=== PATIENT | male | born 1960 | race Caucasian/White ===

== ENCOUNTER 2024-07-03 05:35 | Inpatient (IN) | payer MEDICARE, MEDICAID ==
[~2024-07-03] VITALS: Ht 172.7 cm; Wt 72.7 kg
[2024-07-03] VITALS (38 sets, daily range): BP systolic 114–191; BP diastolic 58–101; PULSE 80–119; RESP 14–24; TEMP 98–99.1; O2SAT 58–100
[~2024-07-03 05:35] MED LIST: ALB0.5UD IH; ALLO100T PO; LEVA15HF4 IH; LISI20TA28 PO; LOP25T PO; LORA1TAB PO; NOR5T PO; proair
[2024-07-03] MEDS: ondansetron/PF 4mg/2ml inj IV ONE (06:11)
[2024-07-03] MEDS: HYDROcodone/acetaminophen 5mg/325mg tablet PO ONE (06:12)
[2024-07-03 06:35] LABS: BASOPHILS # (AUTO) 0.1 X10'3 (0-0.2); BASOPHILS % (AUTO) 0.4 % (0-1); EOSINOPHILS % (AUTO) 0 % (0-6); HEMATOCRIT 45.8 % (42.0-52.0); HEMOGLOBIN 15.6 g/dl (14.0-17.9); LYMPHOCYTES # (AUTO) 0.7 X10'3 (1.1-4.8); LYMPHOCYTES % (AUTO) 2.6 % (21-51); MEAN CORPUSCULAR HEMOGLOBIN 31.6 PG (27.0-31.0); MEAN PLATELET VOLUME 8.2 FL (7.4-10.4); MONOCYTES # (AUTO) 1.4 X10'3 (0-0.9); MONOCYTES % (AUTO) 5.4 % (2-12); NEUTROPHILS # (AUTO) 24.3 X10'3 (1.8-7.7); NEUTROPHILS % (AUTO) 91.6 % (42-75); PLATELET COUNT 511 X10'3 (140-440); RED BLOOD COUNT 4.92 X10'6 (4.70-6.10); RED CELL DISTRIBUTION WIDTH 13.2 % (11.5-14.5)
[2024-07-03 06:41] LABS: ALANINE AMINOTRANSFERASE 30 U/L (12-78); ALBUMIN 4.4 G/DL (3.4-5.0); ALKALINE PHOSPHATASE 65 IU/L (46-116); ANION GAP 13 (8-16); ASPARTATE AMINO TRANSFERASE 27 U/L (10-37); BLOOD UREA NITROGEN 25 MG/DL (7-18); BUN/CREATININE RATIO 12.3 (10.0-20.0); CALCIUM 11.3 MG/DL (8.5-10.1); CHLORIDE 89 MMOL/L (99-107); CREATININE 2.03 MG/DL (0.60-1.10); GLUCOSE 279 MG/DL (70-104); POTASSIUM 3.4 MMOL/L (3.5-5.1); SODIUM 130 MMOL/L (135-145); TOTAL PROTEIN 8.6 G/DL (6.4-8.2); eCRCL 35 ML/MIN; eGFR 34 ML/MIN
[2024-07-03 06:50] LABS: LIPASE 56 U/L (16-77); PRO BRAIN NATRIURETIC PEPTIDE 2723 PG/ML (0-125)
[2024-07-03] MEDS: normal saline 1000ml 1,000 ML IV ONE ×3 (07:16→09:10)
[2024-07-03] MEDS: HYDROmorphone 1 mg/ml syringe IV ONE (07:16)
[2024-07-03 07:17] LABS: WHITE BLOOD COUNT 26.6 X10'3 (4.5-11.0)
[2024-07-03] MEDS: morphine 4 MG/ML inj SYRINge IV ONE ×2 (07:52→09:06)
[2024-07-03 08:41] LABS: BILIRUBIN,URINE SMALL (Neg); COLOR,URINE YELLOW (Yellow); GLUCOSE, URINE NEGATIVE (Neg); KETONES,URINE TRACE mg/dl (Neg); LEUKOCYTE ESTERASE ,URINE NEGATIVE (Neg); NITRITES, URINE NEGATIVE (Neg); OCCULT BLOOD,URINE NEGATIVE (Neg); PH,URINE 8.5 (4.8-8.0); PROTEIN,URINE 100 mg/dl (Neg); UROBILINOGEN,URINE 0.2 E.U/dL (0.2-1.0)
[2024-07-03 08:44] LABS: CLARITY,URINE SLIGHTLY CLOUDY (Clear); UA COLLECTION TYPE CLN CATCH MIDSTREAM
[2024-07-03 08:47] LABS: TOTAL CELLS COUNTED 100
[2024-07-03 08:48] LABS: PLATELET ESTIMATE INCREASED
[2024-07-03 08:50] LABS: SQUAMOUS EPITHELIAL CELL,UR FEW /LPF (FEW)
[2024-07-03 08:51] LABS: BACTERIA,URINE FEW /HPF (Neg); SPERM FEW /HPF (NEGATIVE)
[2024-07-03] MEDS: piperacillin/tazo 3.375gm/50ml 50 ML IV ONE (09:42)
[2024-07-03] MEDS ORDERED: hydrALAZINE 20mg/ml inj. IV PRN (10:00)
[2024-07-03] MEDS ORDERED: morphine 2 MG/ML inj. syringe IV PRN ×3 (10:00→10:45)
[2024-07-03] MEDS: ringers solution, lacted 1,000 ML IV SCH (10:00)
[2024-07-03] MEDS ORDERED: fentaNYL/PF 50MCG/1 ML 2ML syringe IV PRN (10:00)
[2024-07-03] MEDS ORDERED: NORepinephrine 8mg/ 250ml NS 250 ML IV ONE (10:13)
[2024-07-03] MEDS ORDERED: LIDOcaine 1% 30ml preserv. free vial ONE (10:37)
[2024-07-03] MEDS ORDERED: LIDOcaine 1% (10mg/ml) 2ml vial ONE (10:38)
[2024-07-03] MEDS ORDERED: BUPIVACAINE liposomal/PF 13.3 MG/ML 10mL vial IM ONE ×2 (10:38→10:50)
[2024-07-03] MEDS ORDERED: BUPIVAcaine 2.5mg/ml inj 50ml vial (contains preservative) ONE ×2 (10:38→10:50)
[2024-07-03] MEDS ORDERED: HYDROcodone/acetaminophen 5mg/325mg tablet PO PRN (10:45)
[2024-07-03] MEDS ORDERED: magnesium sulf-water 2g/50mL 50 ML IV PRN (10:45)
[2024-07-03] MEDS ORDERED: acetaminophen 325mg tablet PO PRN (10:45)
[2024-07-03] MEDS ORDERED: normal saline 1000ml 1,000 ML IV SCH (10:45)
[2024-07-03] MEDS ORDERED: HYDROcodone/acetaminophen 10/325mg tab PO PRN (10:45)
[2024-07-03] MEDS ORDERED: potassium Cl 20 mEq SR tablet PO PRN ×2 (10:45)
[2024-07-03] MEDS ORDERED: magnesium sulf-water 4G/100mL 100 ML IV PRN (10:45)
[2024-07-03] MEDS ORDERED: ondansetron/PF 4mg/2ml inj IV PRN (10:45)
[2024-07-03] MEDS ORDERED: magnesium Cl slow-release 64mg tablet PO PRN (10:45)
[2024-07-03] MEDS: albuterol 2.5 MG/3 ML nebule NEB ONE (10:46)
[2024-07-03] MEDS ORDERED: sevoflurane 250ml liquid IH ONE (11:00)
[2024-07-03] MEDS ORDERED: fentaNYL /PF 50mcg/ml 5ml ampule ONE ×2 (11:52→12:15)
[2024-07-03] MEDS ORDERED: propofol inj 20 ML IV ONE (12:12)
[2024-07-03] MEDS ORDERED: LIDOcaine 2% (20mg/ml) 5ml vial ONE (12:12)
[2024-07-03] MEDS ORDERED: rocuronium 10mg/ml inj IV ONE ×2 (12:12)
[2024-07-03] MEDS ORDERED: sugammadex 200mg/2ml injection IV ONE (12:16)
[2024-07-03] MEDS: labetalol 20mg/4ml (5mg/ml) syringe IV PRN (12:48)
[2024-07-03] MEDS ORDERED: naloxone 0.4 mg/ml inj IV PRN (12:55)
[2024-07-03] MEDS: morphine 4 MG/ML inj SYRINge IV PRN (13:25)
[2024-07-03] MEDS: fentaNYL/PF 50MCG/1 ML 2ML syringe IV PRN (13:31)
[2024-07-03] MEDS: HYDROmorph/NS 0.2 mg/ml PCA 100 ML IV SCH (13:40)
[2024-07-03] MEDS: ondansetron/PF 4mg/2ml inj IV PRN (14:55)
[2024-07-03] MEDS: normal saline 1000ml 1,000 ML IV SCH (19:37)
[2024-07-03] MEDS: proCHLORperazine 10 MG/2 ml inj IV PRN (19:47)
[2024-07-03] MEDS: heparin, porcine 5000 units/ml vial SQ SCH (19:51)
[2024-07-03] MEDS: ceFOXitin 1 GM/D5W 50mL IVPB 50 ML IV SCH (19:54)
[2024-07-03] MEDS: metroNIDAZOLE-Flagyl 500mg/NS 100 ML IV SCH (21:23)
[2024-07-03] MEDS ORDERED: ciprofloxacin 250mg tablet PO SCH (22:00)
[2024-07-03] MEDS ORDERED: haloperidol lactate 5mg/ml inj IM PRN (22:20)
[2024-07-04] MEDS: folic acid 1mg/0.2ml inj IV SCH (00:14)
[2024-07-04] MEDS: thiamine 100mg/ml 2ml inj. IV SCH (00:16)
[2024-07-04 02:00] VITALS: BP 126/73; PULSE 93; RESP 18; TEMP 98.1; O2SAT 95
[2024-07-04] MEDS: potassium Cl 40MEQ/1/2NS 520ml 520 ML IV PRN (02:14)
[2024-07-04] MEDS: ondansetron/PF 4mg/2ml inj IV PRN (02:21)
[2024-07-04 06:00] VITALS: BP 129/77; PULSE 96; RESP 15; TEMP 98; O2SAT 99
[2024-07-04 06:18] LABS: BASOPHILS % (AUTO) 0.1 % (0-1); EOSINOPHILS % (AUTO) 0 % (0-6); HEMATOCRIT 34.4 % (42.0-52.0); HEMOGLOBIN 11.9 g/dl (14.0-17.9); LYMPHOCYTES # (AUTO) 1.1 X10'3 (1.1-4.8); LYMPHOCYTES % (AUTO) 5.7 % (21-51); MEAN CORPUSCULAR HEMOGLOBIN 32.2 PG (27.0-31.0); MEAN CORPUSCULAR HGB CONC 34.7 g/dL (33.0-36.5); MEAN PLATELET VOLUME 7.6 FL (7.4-10.4); MONOCYTES # (AUTO) 1.6 X10'3 (0-0.9); MONOCYTES % (AUTO) 8.2 % (2-12); NEUTROPHILS # (AUTO) 16.8 X10'3 (1.8-7.7); PLATELET COUNT 313 X10'3 (140-440); RED CELL DISTRIBUTION WIDTH 13.3 % (11.5-14.5); WHITE BLOOD COUNT 19.5 X10'3 (4.5-11.0)
[2024-07-04 06:35] LABS: ALANINE AMINOTRANSFERASE 27 U/L (12-78); ALBUMIN 2.8 G/DL (3.4-5.0); ALBUMIN/GLOBULIN RATIO 0.8 (1.1-1.5); ALKALINE PHOSPHATASE 42 IU/L (46-116); ANION GAP 6 (8-16); ASPARTATE AMINO TRANSFERASE 31 U/L (10-37); BILIRUBIN,TOTAL 0.6 MG/DL (0.1-1.0); BLOOD UREA NITROGEN 18 MG/DL (7-18); BUN/CREATININE RATIO 17.8 (10.0-20.0); CALCIUM 8.7 MG/DL (8.5-10.1); CHLORIDE 100 MMOL/L (99-107); CREATININE 1.01 MG/DL (0.60-1.10); GLUCOSE 125 MG/DL (70-104); POTASSIUM 3.8 MMOL/L (3.5-5.1); SODIUM 139 MMOL/L (135-145); TOTAL CARBON DIOXIDE 33.3 MMOL/L (24-32); TOTAL PROTEIN 6.1 G/DL (6.4-8.2); eCRCL 74 ML/MIN; eGFR 75 ML/MIN
[2024-07-04] MEDS: LORazepam 2 mg/ml vial IV PRN (08:18)
[2024-07-04 11:00] VITALS: BP 130/77; PULSE 108; RESP 15; TEMP 99.4; O2SAT 91
[2024-07-04] MEDS: CADD PCA waste documentation MC SCH (17:35)
[2024-07-04 18:00] VITALS: BP 165/85; PULSE 96; RESP 15; TEMP 97.7; O2SAT 96
[2024-07-04] MEDS: HYDROmorphone 1 mg/ml syringe IV PRN (18:01)
[2024-07-04 20:00] VITALS: RESP 15; O2SAT 96
[2024-07-04 22:00] VITALS: BP 167/92; PULSE 114; RESP 26; TEMP 97.7; O2SAT 96
[2024-07-04] MEDS: ciprofloxacin/D5W 200mg/100mL 100 ML IV SCH (22:32)
[2024-07-04] MEDS: fluticasone nasal spray 16GM bottle NS SCH (22:51)
[2024-07-05] VITALS (8 sets, daily range): BP systolic 139–165; BP diastolic 70–89; PULSE 89–128; RESP 14–27; TEMP 97.9–99.7; O2SAT 92–96
[2024-07-05 06:32] LABS: BASOPHILS # (AUTO) 0.1 X10'3 (0-0.2); BASOPHILS % (AUTO) 0.4 % (0-1); EOSINOPHILS # (AUTO) 0.1 X10'3 (0-0.9); EOSINOPHILS % (AUTO) 0.5 % (0-6); HEMATOCRIT 31.9 % (42.0-52.0); HEMOGLOBIN 10.9 g/dl (14.0-17.9); LYMPHOCYTES # (AUTO) 1.3 X10'3 (1.1-4.8); LYMPHOCYTES % (AUTO) 9.7 % (21-51); MEAN CORPUSCULAR HEMOGLOBIN 31.8 PG (27.0-31.0); MEAN CORPUSCULAR HGB CONC 34.1 g/dL (33.0-36.5); MEAN CORPUSCULAR VOLUME 93.1 FL (78-98); MEAN PLATELET VOLUME 8.1 FL (7.4-10.4); MONOCYTES # (AUTO) 1.4 X10'3 (0-0.9); MONOCYTES % (AUTO) 10.1 % (2-12); NEUTROPHILS # (AUTO) 11.1 X10'3 (1.8-7.7); NEUTROPHILS % (AUTO) 79.3 % (42-75); PLATELET COUNT 308 X10'3 (140-440); RED BLOOD COUNT 3.43 X10'6 (4.70-6.10); RED CELL DISTRIBUTION WIDTH 12.8 % (11.5-14.5); WHITE BLOOD COUNT 13.9 X10'3 (4.5-11.0)
[2024-07-05 06:55] LABS: ALANINE AMINOTRANSFERASE 39 U/L (12-78); ALBUMIN 2.8 G/DL (3.4-5.0); ALBUMIN/GLOBULIN RATIO 0.8 (1.1-1.5); ALKALINE PHOSPHATASE 41 IU/L (46-116); ANION GAP 7 (8-16); ASPARTATE AMINO TRANSFERASE 27 U/L (10-37); BILIRUBIN,TOTAL 0.7 MG/DL (0.1-1.0); BLOOD UREA NITROGEN 15 MG/DL (7-18); BUN/CREATININE RATIO 18.3 (10.0-20.0); CALCIUM 9.1 MG/DL (8.5-10.1); CHLORIDE 100 MMOL/L (99-107); CREATININE 0.82 MG/DL (0.60-1.10); GLUCOSE 93 MG/DL (70-104); SODIUM 141 MMOL/L (135-145); TOTAL CARBON DIOXIDE 34.3 MMOL/L (24-32); TOTAL PROTEIN 6.5 G/DL (6.4-8.2); eCRCL 92 ML/MIN; eGFR > 90 ML/MIN
[2024-07-05 07:26] LABS: POTASSIUM 2.4 MMOL/L (3.5-5.1)
[2024-07-05] MEDS: metoprolol tartrate 25mg tablet PO SCH (08:33)
[2024-07-05] MEDS: amLODIPine 5mg tablet PO SCH (08:34)
[2024-07-05] MEDS: lisinopril 20mg tablet PO SCH (08:34)
[2024-07-05] MEDS: proCHLORperazine 10 MG/2 ml inj IV PRN (15:52)
[2024-07-05] MEDS: zolpidem 5mg tablet PO PRN (20:41)
[2024-07-06] VITALS (11 sets, daily range): BP systolic 135–166; BP diastolic 72–102; PULSE 82–121; RESP 16–30; TEMP 97.7–98.9; O2SAT 91–98
[2024-07-06 01:12] LABS: URINE AMPHETAMINE SCREEN NEGATIVE (Neg); URINE BARBITUATE SCREEN NEGATIVE (Neg); URINE BENZODIAZEPINES SCREEN NEGATIVE (Neg); URINE CANNABINOID SCREEN POSITIVE (Neg); URINE COCAINE SCREEN NEGATIVE (Neg); URINE METHADONE SCREEN NEGATIVE (Neg); URINE OPIATE SCREEN POSITIVE (Neg); URINE PHENCYCLIDINE SCREEN NEGATIVE (Neg)
[2024-07-06 05:31] LABS: BASOPHILS % (AUTO) 0.1 % (0-1); EOSINOPHILS # (AUTO) 0.1 X10'3 (0-0.9); EOSINOPHILS % (AUTO) 1.2 % (0-6); HEMATOCRIT 30.5 % (42.0-52.0); HEMOGLOBIN 10.4 g/dl (14.0-17.9); LYMPHOCYTES # (AUTO) 0.8 X10'3 (1.1-4.8); LYMPHOCYTES % (AUTO) 7.9 % (21-51); MEAN CORPUSCULAR HEMOGLOBIN 31.9 PG (27.0-31.0); MEAN CORPUSCULAR HGB CONC 34.3 g/dL (33.0-36.5); MEAN CORPUSCULAR VOLUME 93.2 FL (78-98); MEAN PLATELET VOLUME 7.3 FL (7.4-10.4); MONOCYTES % (AUTO) 9.9 % (2-12); NEUTROPHILS # (AUTO) 8.5 X10'3 (1.8-7.7); NEUTROPHILS % (AUTO) 80.9 % (42-75); PLATELET COUNT 318 X10'3 (140-440); RED BLOOD COUNT 3.27 X10'6 (4.70-6.10); RED CELL DISTRIBUTION WIDTH 12.5 % (11.5-14.5); WHITE BLOOD COUNT 10.6 X10'3 (4.5-11.0)
[2024-07-06 05:47] LABS: ALANINE AMINOTRANSFERASE 41 U/L (12-78); ALBUMIN 2.8 G/DL (3.4-5.0); ALBUMIN/GLOBULIN RATIO 0.8 (1.1-1.5); ANION GAP 5 (8-16); ASPARTATE AMINO TRANSFERASE 26 U/L (10-37); BILIRUBIN,TOTAL 0.6 MG/DL (0.1-1.0); BLOOD UREA NITROGEN 13 MG/DL (7-18); BUN/CREATININE RATIO 16.5 (10.0-20.0); CALCIUM 8.7 MG/DL (8.5-10.1); CHLORIDE 104 MMOL/L (99-107); CREATININE 0.79 MG/DL (0.60-1.10); GLUCOSE 91 MG/DL (70-104); MAGNESIUM 1.7 MG/DL (1.5-2.4); POTASSIUM 3.1 MMOL/L (3.5-5.1); SODIUM 142 MMOL/L (135-145); TOTAL CARBON DIOXIDE 32.8 MMOL/L (24-32); TOTAL PROTEIN 6.4 G/DL (6.4-8.2); eCRCL 95 ML/MIN; eGFR > 90 ML/MIN
[2024-07-06 05:48] LABS: ALKALINE PHOSPHATASE 43 IU/L (46-116)
[2024-07-06] MEDS ORDERED: potassium Cl 20 mEq SR tablet PO PRN (14:55)
[2024-07-06] MEDS ORDERED: magnesium sulf-water 4G/100mL 100 ML IV PRN (15:00)
[2024-07-06] MEDS ORDERED: magnesium sulf-water 2g/50mL 50 ML IV PRN (15:00)
[2024-07-06] MEDS: pantoprazole 40 MG vial IV SCH (17:04)
[2024-07-06] MEDS: albuterol 2.5 MG/3 ML nebule NEB PRN (21:44)
[2024-07-07] VITALS (10 sets, daily range): BP systolic 111–137; BP diastolic 60–90; PULSE 81–109; RESP 16–22; TEMP 98.2–99.9; O2SAT 90–98
[2024-07-07] MEDS: HYDROmorphone inj. 0.5 MG/0.5 ML DISP.SYRIN IV PRN (02:06)
[2024-07-07 05:25] LABS: BASOPHILS % (AUTO) 0.3 % (0-1); EOSINOPHILS # (AUTO) 0.2 X10'3 (0-0.9); EOSINOPHILS % (AUTO) 1.8 % (0-6); HEMATOCRIT 29.3 % (42.0-52.0); HEMOGLOBIN 10.2 g/dl (14.0-17.9); LYMPHOCYTES # (AUTO) 0.8 X10'3 (1.1-4.8); LYMPHOCYTES % (AUTO) 9.1 % (21-51); MEAN CORPUSCULAR HEMOGLOBIN 32.2 PG (27.0-31.0); MEAN CORPUSCULAR HGB CONC 34.7 g/dL (33.0-36.5); MEAN CORPUSCULAR VOLUME 92.9 FL (78-98); MEAN PLATELET VOLUME 7.7 FL (7.4-10.4); MONOCYTES # (AUTO) 1.2 X10'3 (0-0.9); NEUTROPHILS # (AUTO) 6.4 X10'3 (1.8-7.7); NEUTROPHILS % (AUTO) 74.8 % (42-75); PLATELET COUNT 322 X10'3 (140-440); RED BLOOD COUNT 3.16 X10'6 (4.70-6.10); RED CELL DISTRIBUTION WIDTH 12.6 % (11.5-14.5); WHITE BLOOD COUNT 8.6 X10'3 (4.5-11.0)
[2024-07-07 05:41] LABS: ALANINE AMINOTRANSFERASE 33 U/L (12-78); ALBUMIN 2.2 G/DL (3.4-5.0); ALBUMIN/GLOBULIN RATIO 0.7 (1.1-1.5); ALKALINE PHOSPHATASE 36 IU/L (46-116); ANION GAP 5 (8-16); ASPARTATE AMINO TRANSFERASE 21 U/L (10-37); BILIRUBIN,TOTAL 0.3 MG/DL (0.1-1.0); BLOOD UREA NITROGEN 12 MG/DL (7-18); BUN/CREATININE RATIO 14.8 (10.0-20.0); CALCIUM 7.4 MG/DL (8.5-10.1); CHLORIDE 103 MMOL/L (99-107); CREATININE 0.81 MG/DL (0.60-1.10); GLUCOSE 126 MG/DL (70-104); MAGNESIUM 2.3 MG/DL (1.5-2.4); SODIUM 135 MMOL/L (135-145); TOTAL PROTEIN 5.4 G/DL (6.4-8.2); eCRCL 93 ML/MIN; eGFR > 90 ML/MIN
[2024-07-07 05:49] LABS: POTASSIUM 2.7 MMOL/L (3.5-5.1)
[2024-07-07] MEDS: potassium Cl 40MEQ/1/2NS 520ml 520 ML IV PRN (06:13)
[2024-07-07] MEDS ORDERED: oxyCODONE/APAP 5-325mg tablet PO PRN (16:20)
[2024-07-07] MEDS: ringers solution, lacted 1,000 ML IV SCH (16:38)
[2024-07-07] MEDS: LORazepam 0.5 MG tablet PO PRN (18:00)
[2024-07-07] MEDS: oxyCODONE/APAP 10/325mg tablet PO PRN (20:01)
[2024-07-08] VITALS (11 sets, daily range): BP systolic 103–149; BP diastolic 55–73; PULSE 80–116; RESP 13–25; TEMP 97.5–98.8; O2SAT 92–96
[2024-07-08 03:21] LABS: BASOPHILS % (AUTO) 0.7 % (0-1); EOSINOPHILS # (AUTO) 0.1 X10'3 (0-0.9); EOSINOPHILS % (AUTO) 1.4 % (0-6); HEMATOCRIT 27.6 % (42.0-52.0); HEMOGLOBIN 9.7 g/dl (14.0-17.9); LYMPHOCYTES # (AUTO) 1.1 X10'3 (1.1-4.8); LYMPHOCYTES % (AUTO) 14.5 % (21-51); MEAN CORPUSCULAR HEMOGLOBIN 32.4 PG (27.0-31.0); MEAN CORPUSCULAR VOLUME 92.4 FL (78-98); MEAN PLATELET VOLUME 7.7 FL (7.4-10.4); MONOCYTES # (AUTO) 1.1 X10'3 (0-0.9); MONOCYTES % (AUTO) 14.8 % (2-12); NEUTROPHILS # (AUTO) 5.1 X10'3 (1.8-7.7); NEUTROPHILS % (AUTO) 68.6 % (42-75); PLATELET COUNT 289 X10'3 (140-440); RED BLOOD COUNT 2.99 X10'6 (4.70-6.10); RED CELL DISTRIBUTION WIDTH 12.2 % (11.5-14.5); WHITE BLOOD COUNT 7.5 X10'3 (4.5-11.0)
[2024-07-08 03:46] LABS: ALANINE AMINOTRANSFERASE 39 U/L (12-78); ALBUMIN 2.4 G/DL (3.4-5.0); ALBUMIN/GLOBULIN RATIO 0.8 (1.1-1.5); ALKALINE PHOSPHATASE 32 IU/L (46-116); ANION GAP 5 (8-16); ASPARTATE AMINO TRANSFERASE 31 U/L (10-37); BILIRUBIN,TOTAL 0.3 MG/DL (0.1-1.0); BLOOD UREA NITROGEN 7 MG/DL (7-18); BUN/CREATININE RATIO 9.7 (10.0-20.0); CALCIUM 7.8 MG/DL (8.5-10.1); CHLORIDE 103 MMOL/L (99-107); CREATININE 0.72 MG/DL (0.60-1.10); GLUCOSE 91 MG/DL (70-104); MAGNESIUM 1.4 MG/DL (1.5-2.4); POTASSIUM 3.2 MMOL/L (3.5-5.1); SODIUM 136 MMOL/L (135-145); TOTAL CARBON DIOXIDE 27.8 MMOL/L (24-32); TOTAL PROTEIN 5.4 G/DL (6.4-8.2); eCRCL 104 ML/MIN; eGFR > 90 ML/MIN
[2024-07-08] MEDS: potassium Cl 20 mEq SR tablet PO PRN (07:43)
[2024-07-08] MEDS: magnesium Cl slow-release 64mg tablet PO PRN (07:43)
[2024-07-08] MEDS: acetaminophen 325mg tablet PO PRN (07:44)
[2024-07-09] VITALS (10 sets, daily range): BP systolic 104–138; BP diastolic 62–71; PULSE 74–91; RESP 14–18; TEMP 97.4–98.4; O2SAT 92–96
[2024-07-09] MEDS: lactose-reduced food (Ensure Enlive) - 237ml bottle PO SCH (13:24)
[2024-07-09] MEDS: mag hydrox/Alum hydrox/simeth 30ml oral suspension PO PRN (14:36)
[2024-07-09 19:30] LABS: BASOPHILS # (AUTO) 0.1 X10'3 (0-0.2); BASOPHILS % (AUTO) 0.9 % (0-1); EOSINOPHILS # (AUTO) 0.1 X10'3 (0-0.9); EOSINOPHILS % (AUTO) 1.8 % (0-6); HEMATOCRIT 28.8 % (42.0-52.0); HEMOGLOBIN 10.1 g/dl (14.0-17.9); LYMPHOCYTES # (AUTO) 1.2 X10'3 (1.1-4.8); LYMPHOCYTES % (AUTO) 21.8 % (21-51); MEAN CORPUSCULAR HEMOGLOBIN 32.6 PG (27.0-31.0); MEAN CORPUSCULAR HGB CONC 35.2 g/dL (33.0-36.5); MEAN CORPUSCULAR VOLUME 92.6 FL (78-98); MONOCYTES # (AUTO) 0.7 X10'3 (0-0.9); MONOCYTES % (AUTO) 12.3 % (2-12); NEUTROPHILS # (AUTO) 3.5 X10'3 (1.8-7.7); NEUTROPHILS % (AUTO) 63.2 % (42-75); PLATELET COUNT 291 X10'3 (140-440); RED BLOOD COUNT 3.11 X10'6 (4.70-6.10); RED CELL DISTRIBUTION WIDTH 12.5 % (11.5-14.5); WHITE BLOOD COUNT 5.6 X10'3 (4.5-11.0)
[2024-07-09 19:48] LABS: ALANINE AMINOTRANSFERASE 42 U/L (12-78); ALBUMIN 2.7 G/DL (3.4-5.0); ALBUMIN/GLOBULIN RATIO 0.8 (1.1-1.5); ALKALINE PHOSPHATASE 37 IU/L (46-116); ANION GAP 6 (8-16); ASPARTATE AMINO TRANSFERASE 28 U/L (10-37); BILIRUBIN,TOTAL 0.2 MG/DL (0.1-1.0); BLOOD UREA NITROGEN 8 MG/DL (7-18); BUN/CREATININE RATIO 9.8 (10.0-20.0); CALCIUM 8.2 MG/DL (8.5-10.1); CHLORIDE 103 MMOL/L (99-107); CREATININE 0.82 MG/DL (0.60-1.10); GLUCOSE 150 MG/DL (70-104); POTASSIUM 3.5 MMOL/L (3.5-5.1); SODIUM 139 MMOL/L (135-145); TOTAL CARBON DIOXIDE 30.3 MMOL/L (24-32); TOTAL PROTEIN 6.1 G/DL (6.4-8.2); eCRCL 92 ML/MIN; eGFR > 90 ML/MIN
[2024-07-09] MEDS: diatr meglu/diatrizoate 30ml oral sol.-(3 dose) bottle PO SCH (21:53)
[2024-07-10 02:00] VITALS: BP 124/65; PULSE 88; RESP 23; TEMP 98.4; O2SAT 96
[2024-07-10 07:43] LABS: BASOPHILS # (AUTO) 0.1 X10'3 (0-0.2); BASOPHILS % (AUTO) 1.2 % (0-1); EOSINOPHILS # (AUTO) 0.1 X10'3 (0-0.9); EOSINOPHILS % (AUTO) 2.1 % (0-6); HEMATOCRIT 29.4 % (42.0-52.0); LYMPHOCYTES # (AUTO) 1.3 X10'3 (1.1-4.8); LYMPHOCYTES % (AUTO) 22.4 % (21-51); MEAN CORPUSCULAR HEMOGLOBIN 31.7 PG (27.0-31.0); MEAN CORPUSCULAR HGB CONC 34.2 g/dL (33.0-36.5); MEAN CORPUSCULAR VOLUME 92.9 FL (78-98); MEAN PLATELET VOLUME 8.6 FL (7.4-10.4); MONOCYTES # (AUTO) 0.8 X10'3 (0-0.9); MONOCYTES % (AUTO) 14.6 % (2-12); NEUTROPHILS # (AUTO) 3.4 X10'3 (1.8-7.7); NEUTROPHILS % (AUTO) 59.7 % (42-75); PLATELET COUNT 309 X10'3 (140-440); RED BLOOD COUNT 3.16 X10'6 (4.70-6.10); RED CELL DISTRIBUTION WIDTH 12.3 % (11.5-14.5); WHITE BLOOD COUNT 5.6 X10'3 (4.5-11.0)
[2024-07-10] MEDS ORDERED: iohexol 300mg/ml 100ml inj. ONE (07:51)
[2024-07-10 08:05] LABS: ALANINE AMINOTRANSFERASE 38 U/L (12-78); ALBUMIN 2.6 G/DL (3.4-5.0); ALBUMIN/GLOBULIN RATIO 0.8 (1.1-1.5); ALKALINE PHOSPHATASE 37 IU/L (46-116); ANION GAP 6 (8-16); ASPARTATE AMINO TRANSFERASE 26 U/L (10-37); BILIRUBIN,TOTAL 0.2 MG/DL (0.1-1.0); BLOOD UREA NITROGEN 6 MG/DL (7-18); BUN/CREATININE RATIO 8.5 (10.0-20.0); CALCIUM 8.3 MG/DL (8.5-10.1); CHLORIDE 103 MMOL/L (99-107); CREATININE 0.71 MG/DL (0.60-1.10); GLUCOSE 91 MG/DL (70-104); MAGNESIUM 1.9 MG/DL (1.5-2.4); POTASSIUM 3.5 MMOL/L (3.5-5.1); SODIUM 138 MMOL/L (135-145); eCRCL 106 ML/MIN; eGFR > 90 ML/MIN
[2024-07-10 11:00] VITALS: BP 104/55; PULSE 93; RESP 16; TEMP 98.1; O2SAT 97
[2024-07-10 15:36] VITALS: RESP 21
== END 2024-07-10 16:40 | disposition home or self-care (01) | DRG 853 ==
LOC: ER 05:36 → ED HOLD 10:46 → UNDOADMIN 10:46 → ED HOLD 13:05 → PCU 3S 17:36 → ED HOLD 17:36
PROVIDERS: ADMIT Internal Medicine; ATTEND Internal Medicine
PROC: 0DN80ZZ Release Small Intestine, Open Approach (ICD-10-PCS; 2024-07-03)
PROC: 0DH Gastrointestinal System, Insertion (ICD-10-PCS; 2024-07-03)
PROC: 03HY32Z Insertion of Monitoring Device into Upper Artery, Percutaneous Approach (ICD-10-PCS; 2024-07-03)
PROC: 02HV33Z Insertion of Infusion Device into Superior Vena Cava, Percutaneous Approach (ICD-10-PCS; 2024-07-03)
PROC: B548ZZA Ultrasonography of Superior Vena Cava, Guidance (ICD-10-PCS; 2024-07-03)
PROC: 0D9670Z Drainage of Stomach with Drainage Device, Via Natural or Artificial Opening (ICD-10-PCS; 2024-07-03)
PROC: 3E0T3BZ Introduction of Anesthetic Agent into Peripheral Nerves and Plexi, Percutaneous Approach (ICD-10-PCS; principal; 2024-07-03 11:00)
PROC: BW211ZZ Computerized Tomography (CT Scan) of Abdomen and Pelvis using Low Osmolar Contrast (ICD-10-PCS; 2024-07-10)
DX: A41.9 Sepsis, unspecified organism (principal); I21.A1 Myocardial infarction type 2; N17.0 Acute kidney failure with tubular necrosis; K56.609 Unspecified intestinal obstruction, unspecified as to partial versus complete obstruction; E87.20 Acidosis, unspecified; F43.10 Post-traumatic stress disorder, unspecified; I10 Essential (primary) hypertension; F41.9 Anxiety disorder, unspecified; D64.9 Anemia, unspecified; F10.20 Alcohol dependence, uncomplicated; E87.6 Hypokalemia; I25.10 Atherosclerotic heart disease of native coronary artery without angina pectoris; J45.909 Unspecified asthma, uncomplicated; Z88.1 Allergy status to other antibiotic agents; Z88.8 Allergy status to other drugs, medicaments and biological substances; Z79.899 Other long term (current) drug therapy; Z53.31 Laparoscopic surgical procedure converted to open procedure
CPT/HCPCS: 36415; 71045; 74018; 74176; 74177; 80053; 80305; 81001; 82140; 82948; 83605; 83690; 83735; 83880; 84132; 84484; 85007; 85025; 87040; 87081; 87088; 92508; 92616; 93005; 93306; 94640; 94760; 99291; A4215; A4615; A4618; A6258; A6402; A7000; C1758; G0378; J0666; J0694; J0744; J0780; J1100; J1171; J1644; J2003; J2060; J2270; J2405; J2470; J2704; J3010; J3411; J3480; J3490; J7030; J7040; J7120; Q9963; Q9967